=== PATIENT | female | born 1990 | race Caucasian/White ===

== ENCOUNTER 2017-07-30 08:35 | Inpatient (IN) | payer OTHER ==
[~2017-07-30] VITALS: Ht 172.7 cm; Wt 81.6 kg
[~2017-07-30 08:35] MED LIST: PRENATAL CAPLE1 EACH PO
[2017-07-30] MEDS ORDERED: PRENATAL TABLE1 EACH PO (09:44)
== END 2017-08-02 16:19 | DRG 774 ==
LOC: LDR 08:35 → OB/GYN 07-31 08:18 → SURG-SUITE 07-31 08:34
PROC: 10E0XZZ Delivery of Products of Conception, External Approach (ICD-10-PCS; principal; 2017-07-31)
PROC: 10907ZC Drainage of Amniotic Fluid, Therapeutic from Products of Conception, Via Natural or Artificial Opening (ICD-10-PCS; 2017-07-31)
PROC: 3E0P7VZ Introduction of Hormone into Female Reproductive, Via Natural or Artificial Opening (ICD-10-PCS; 2017-07-31)
PROC: 3E033VJ Introduction of Other Hormone into Peripheral Vein, Percutaneous Approach (ICD-10-PCS; 2017-07-31)
PROC: 4A1HXCZ Monitoring of Products of Conception, Cardiac Rate, External Approach (ICD-10-PCS; 2017-07-31)
DX: O69.81X0 Labor and delivery complicated by cord around neck, without compression, not applicable or unspecified (principal); O75.3 Other infection during labor; Z3A.40 40 weeks gestation of pregnancy; Z37.0 Single live birth